=== PATIENT | female | born 1975 | race Caucasian/White ===

== ENCOUNTER 2016-08-02 14:33 | Outpatient (CLI) ==
[2015-06-06 10:32] VITALS: BMI 22.7
[2016-08-02 15:07] LABS: BASOPHILS % (AUTO) 0.1 % (0.0-3.0); EOSINOPHILS # (AUTO) 0.1 K/ul (0.0-0.7); EOSINOPHILS % (AUTO) 1.1 % (0.0-7.0); HEMATOCRIT 43.2 % (37.0-47.0); HEMOGLOBIN 14.6 g/dl (12.0-16.0); IMMATURE GRANULOCYTE % (AUTO) 0.4 % (0.0-5.0); LYMPHOCYTES # (AUTO) 2.1 K/uL (0.60-3.4); LYMPHOCYTES % (AUTO) 29.2 (10.0-50.0); MEAN CORPUSCULAR HGB CONC 33.8 (31.8-35.4); MEAN CORPUSCULAR VOLUME 88.9 fl (81.0-99.0); MONOCYTES # (AUTO) 0.4 K/uL (0.4-2.0); MONOCYTES % (AUTO) 5.9 (0-10); NEUTROPHILS # (AUTO) 4.5 K/ul (2.0-6.9); NEUTROPHILS % (AUTO) 63.3; PLATELET COUNT 322 10^3/uL (140-440); RED BLOOD COUNT 4.86 10^6/ul (4.20-5.40); WHITE BLOOD COUNT 7.15 K/ul (4.6-10.2)
[2016-08-02 15:14] LABS: BILIRUBIN,URINE Negative (NEGATIVE); KETONES,URINE Negative (NEGATIVE); LEUKOCYTE ESTERASE ,URINE Trace (NEGATIVE); NITRITE,URINE Negative (NEGATIVE); PROTEIN,URINE Negative (NEGATIVE); URINE, BLOOD Negative (NEGATIVE)
[2016-08-02 15:16] LABS: ADD URINE MICROSCOPIC YES
[2016-08-02 15:18] LABS: BACTERIA,URINE 1+ (NOT PRESENT)
[2016-08-02 15:55] LABS: ALBUMIN 3.7 g/dL (3.4-5.0); ALBUMIN/GLOBULIN RATIO 1.03; ANION GAP 13.7; BILIRUBIN,TOTAL 0.46 mg/dL (0.00-1.20); BUN/CREATININE RATIO 6.66; CALCIUM 9.8 mg/dL (8.2-10.2); CHOL/HDL RATIO 3.1 (4.5-5.5); CREATININE 1.05 mg/dL (0.60-1.30); POTASSIUM 4.7 mmol/L (3.5-5.10); TOTAL PROTEIN 7.3 g/dL (6.4-8.2)
== END 2016-08-02 14:34 | disposition home or self-care (01) ==
LOC: LAB 14:33
PROVIDERS: ATTEND Internal Medicine
DX: E10.9 Type 1 diabetes mellitus without complications (principal); J44.9 Chronic obstructive pulmonary disease, unspecified; E03.9 Hypothyroidism, unspecified; E78.5 Hyperlipidemia, unspecified; R30.0 Dysuria; M79.7 Fibromyalgia; E53.8 Deficiency of other specified B group vitamins; F17.210 Nicotine dependence, cigarettes, uncomplicated
CPT/HCPCS: 36415; 80053; 80061; 81001; 82607; 83036; 84439; 84443; 85025; 87086

== ENCOUNTER 2016-09-26 14:22 | Outpatient (CLI) ==
[2015-06-06 10:32] VITALS: BMI 22.7
[2016-09-26 14:47] LABS: CREATININE 0.98 mg/dL (0.60-1.30)
== END 2016-09-26 14:23 | disposition home or self-care (01) ==
LOC: LAB 14:22
PROVIDERS: ATTEND Emergency Medicine
DX: R42 Dizziness and giddiness (principal); H93.19 Tinnitus, unspecified ear; R29.6 Repeated falls
CPT/HCPCS: 36415; 82565

== ENCOUNTER 2016-09-27 09:15 | Outpatient (CLI) ==
[2015-06-06 10:32] VITALS: BMI 22.7
--- NOTE | 2016-09-27 10:10 | US ---
Examination: Bird-scale and color Doppler ultrasonographic evaluation of the carotid arteries. Comparison: None available. Reason for study: Dizziness. FINDINGS: There is minimal heterogeneous plaque seen within the common carotid artery and internal carotid arteries to the level of the bulb. The right external carotid artery measures 1.3 cm/sec. The right common carotid artery measures 80 / 30 cm/sec. The right internal carotid artery peak systolic velocity measures 90 cm/sec. The right internal carotid artery/CCA PSV ratio measures 1.1. The right internal carotid artery end-diastolic velocity measures 30 cm/sec. There is normal right antegrade vertebral artery flow. There is a small amount of plaque seen within the left common carotid artery and internal carotid ar delfina at the level of the bulb. The left external carotid artery measures 80 cm/sec. The left common carotid artery measures 110 / 30 cm/sec. The left internal carotid artery peak systolic velocity measures 90 cm/sec. The left internal carotid artery/CCA PSV ratio is 0.8. The left internal carotid artery end-diastolic velocity measures 50 cm/sec. There is normal antegrade left vertebral artery flow. Impression: No ultrasonographic evidence of stenosis is seen in either of the carotid arteries.
== END 2016-09-27 09:16 | disposition home or self-care (01) ==
LOC: RAD 09:15
PROVIDERS: ATTEND Internal Medicine
DX: R42 Dizziness and giddiness (principal); H93.13 Tinnitus, bilateral; J44.9 Chronic obstructive pulmonary disease, unspecified; R29.6 Repeated falls

== ENCOUNTER 2016-10-01 13:09 | Outpatient (CLI) ==
[2015-06-06 10:32] VITALS: BMI 22.7
== END 2016-10-01 13:10 | disposition home or self-care (01) ==
LOC: CAR 13:09
PROVIDERS: ATTEND Internal Medicine
DX: R42 Dizziness and giddiness (principal); H93.13 Tinnitus, bilateral; R29.6 Repeated falls; J44.9 Chronic obstructive pulmonary disease, unspecified

== ENCOUNTER 2016-10-02 12:01 | Outpatient (CLI) ==
[2015-06-06 10:32] VITALS: BMI 22.7
--- NOTE | 2016-10-02 16:55 | MRI ---
EXAM: Brain MRI with and without contrast. HISTORY: Falling, dizziness and ringing in ears. COMPARISON: Carotid artery duplex ultrasound 09/27/2016. TECHNIQUE: Multiplanar, multisequence MR images were acquired of the brain before and after adminis tration of intravenous contrast. FINDINGS: The midline structures are central. The right cerebellar tonsil is larger than the left and the right tonsil extends 3.2 mm below the foramen magnum consistent with borderline ectopia. Th e left cerebellar tonsil extends 2.7 mm below the foramen magnum which is within normal variation. This produces minor crowding at the craniocervical junction. There is a normal variant cavum septum pellucidum and cavum vergae. The ventricles and sulci are normal in size. There are no abnormal e xtra-axial fluid collections. The brain parenchyma has no diffusion restriction to suggest acute hypoperfusion or infarction. The re are no abnormal T2 hyperintensities. After administration of gadolinium, no enhancing lesions ar e identified. The corpus callosum is normal. The pituitary gland is normal in size with homogeneou s contrast enhancement and a convex superior border. The infundibulum is midline. There are no intraorbital masses. An old left lamina papyracea fracture is present. There is focal mucosal thickening in the posterior superior right maxillary sinus and minor mucosal thickening in the left maxillary antrum. Middle ears and mastoids are clear. No abnormal contrast enhancement is present in the internal auditory canals labyrinthine structures. Flow voids are present in the major intracranial arteries and dural venous sinuses. IMPRESSION: 1. No intracranial mass, hemorrhage or acute cerebral infarct. 2. Borderline right cerebellar tonsillar ectopia. 3. Normal variant cavum septum pellucidum and cavum vergae.
== END 2016-10-02 12:02 | disposition home or self-care (01) ==
LOC: RAD 12:01
PROVIDERS: ATTEND Internal Medicine
DX: R42 Dizziness and giddiness (principal); H93.13 Tinnitus, bilateral; R29.6 Repeated falls; J44.9 Chronic obstructive pulmonary disease, unspecified

== ENCOUNTER 2016-12-26 18:59 | Outpatient (CLI) ==
[2015-06-06 10:32] VITALS: BMI 22.7
[2016-12-26 19:17] LABS: BASOPHILS % (AUTO) 0.1 % (0.0-3.0); EOSINOPHILS % (AUTO) 0.1 % (0.0-7.0); HEMOGLOBIN 13.7 g/dl (12.0-16.0); IMMATURE GRANULOCYTE % (AUTO) 0.4 % (0.0-5.0); LYMPHOCYTES # (AUTO) 1.7 K/uL (0.60-3.4); LYMPHOCYTES % (AUTO) 22.9 (10.0-50.0); MEAN CORPUSCULAR HGB CONC 34.3 (31.8-35.4); MEAN CORPUSCULAR VOLUME 87.7 fl (81.0-99.0); MONOCYTES # (AUTO) 0.5 K/uL (0.4-2.0); NEUTROPHILS # (AUTO) 5.3 K/ul (2.0-6.9); NEUTROPHILS % (AUTO) 70.5; PLATELET COUNT 296 10^3/uL (140-440); RED BLOOD COUNT 4.56 10^6/ul (4.20-5.40); WHITE BLOOD COUNT 7.48 K/ul (4.6-10.2)
[2016-12-26 19:53] LABS: ALBUMIN 3.8 g/dL (3.4-5.0); ALBUMIN/GLOBULIN RATIO 1.19; ANION GAP 13.3; BILIRUBIN,TOTAL 0.4 mg/dL (0.00-1.20); BUN/CREATININE RATIO 6.79; CALCIUM 9.3 mg/dL (8.2-10.2); CHOL/HDL RATIO 3.3 (4.5-5.5); CREATININE 1.03 mg/dL (0.60-1.30); POTASSIUM 4.3 mmol/L (3.5-5.10)
== END 2016-12-26 19:00 | disposition home or self-care (01) ==
LOC: LAB 18:59
PROVIDERS: ATTEND Internal Medicine
DX: E10.9 Type 1 diabetes mellitus without complications (principal); J44.9 Chronic obstructive pulmonary disease, unspecified; E03.9 Hypothyroidism, unspecified; E78.5 Hyperlipidemia, unspecified
CPT/HCPCS: 36415; 80053; 80061; 82607; 83036; 84443; 85025

== ENCOUNTER 2017-05-14 13:55 | Outpatient (CLI) ==
[2015-06-06 10:32] VITALS: BMI 22.7
[2017-05-14 14:19] LABS: EOSINOPHILS # (AUTO) 0.2 K/ul (0.0-0.7); EOSINOPHILS % (AUTO) 3.1 % (0.0-7.0); HEMATOCRIT 40.3 % (37.0-47.0); HEMOGLOBIN 13.9 g/dl (12.0-16.0); IMMATURE GRANULOCYTE % (AUTO) 0.3 % (0.0-5.0); LYMPHOCYTES # (AUTO) 1.5 K/uL (0.60-3.4); LYMPHOCYTES % (AUTO) 23.6 (10.0-50.0); MEAN CORPUSCULAR HEMOGLOBIN 30.4 pg (27.0-31.0); MEAN CORPUSCULAR HGB CONC 34.5 (31.8-35.4); MEAN CORPUSCULAR VOLUME 88.2 fl (81.0-99.0); MONOCYTES # (AUTO) 0.4 K/uL (0.4-2.0); MONOCYTES % (AUTO) 6.3 (0-10); NEUTROPHILS # (AUTO) 4.1 K/ul (2.0-6.9); NEUTROPHILS % (AUTO) 66.7; PLATELET COUNT 274 10^3/uL (140-440); RED BLOOD COUNT 4.57 10^6/ul (4.20-5.40); WHITE BLOOD COUNT 6.19 K/ul (4.6-10.2)
[2017-05-14 15:46] LABS: ALBUMIN 3.5 g/dL (3.4-5.0); ALBUMIN/GLOBULIN RATIO 0.95; ANION GAP 10.5; BILIRUBIN,TOTAL 0.39 mg/dL (0.00-1.20); BUN/CREATININE RATIO 8.23; CALCIUM 9.4 mg/dL (8.2-10.2); CHOL/HDL RATIO 3.3 (4.5-5.5); CREATININE 0.85 mg/dL (0.60-1.30); POTASSIUM 4.5 mmol/L (3.5-5.10); TOTAL PROTEIN 7.2 g/dL (6.4-8.2)
== END 2017-05-14 13:56 | disposition home or self-care (01) ==
LOC: LAB 13:55
PROVIDERS: ATTEND Internal Medicine
DX: E03.9 Hypothyroidism, unspecified (principal); E78.5 Hyperlipidemia, unspecified; E11.9 Type 2 diabetes mellitus without complications
CPT/HCPCS: 36415; 80053; 80061; 83036; 84439; 84443; 85025

== ENCOUNTER 2017-09-30 15:38 | Outpatient (CLI) ==
[2015-06-06 10:32] VITALS: BMI 22.7
== END 2017-09-30 15:39 | disposition home or self-care (01) ==
LOC: LAB 15:38
PROVIDERS: ATTEND Internal Medicine
DX: E03.9 Hypothyroidism, unspecified (principal); E11.9 Type 2 diabetes mellitus without complications; I10 Essential (primary) hypertension; E78.5 Hyperlipidemia, unspecified
CPT/HCPCS: 36415; 80053; 80061; 83036; 84443; 85025

== ENCOUNTER 2018-02-04 13:49 | Outpatient (CLI) ==
[2015-06-06 10:32] VITALS: BMI 22.7
== END 2018-02-04 13:50 | disposition home or self-care (01) ==
LOC: LAB 13:49
PROVIDERS: ATTEND Internal Medicine
DX: E78.5 Hyperlipidemia, unspecified (principal); E10.9 Type 1 diabetes mellitus without complications
CPT/HCPCS: 36415; 80053; 80061; 83036; 84439; 84443; 85025

== ENCOUNTER 2018-08-25 16:21 | Outpatient (CLI) ==
[2015-06-06 10:32] VITALS: BMI 22.7
== END 2018-08-25 16:22 | disposition home or self-care (01) ==
LOC: LAB 16:21
PROVIDERS: ATTEND Internal Medicine
DX: E11.9 Type 2 diabetes mellitus without complications (principal); E03.9 Hypothyroidism, unspecified; E78.5 Hyperlipidemia, unspecified
CPT/HCPCS: 36415; 80053; 80061; 83036; 84439; 84443; 85025

== ENCOUNTER 2019-03-10 13:45 | Outpatient (CLI) ==
[2015-06-06 10:32] VITALS: BMI 22.7
== END 2019-03-10 13:46 | disposition home or self-care (01) ==
LOC: LAB 13:45
PROVIDERS: ATTEND Internal Medicine
DX: E10.9 Type 1 diabetes mellitus without complications (principal); E03.9 Hypothyroidism, unspecified; E78.5 Hyperlipidemia, unspecified
CPT/HCPCS: 36415; 80053; 80061; 83036; 84439; 84443; 85025